=== PATIENT | female | born 1970 | race Caucasian/White ===

== ENCOUNTER 2024-09-25 14:26 | Outpatient (CLI) | payer OTHER | END 2024-09-25 14:27 | disposition home or self-care (01) | LOC: CSHMAMMO 14:26 | PROVIDERS: ATTEND Nurse Practitioner Family | DX: Z12.31 Encounter for screening mammogram for malignant neoplasm of breast (principal); Z98.82 Breast implant status | CPT/HCPCS: 77063; 77067 ==